=== PATIENT | female | born 1960 | race Caucasian/White ===

== ENCOUNTER 2018-12-05 17:41 | Emergency (ER) | payer OTHER ==
[~2018-12-05] VITALS: Ht 160 cm; Wt 50.4 kg
[~2018-12-05 17:41] MED LIST: FOLI1 PO; HYDCHL25 PO; HYDR1TAB94 PO; IBUP800 PO; LOSA25 PO; Percocet 5-3251 EACH PO; SERT50 PO; VITAMIN D; ZOLP10 PO
[2018-12-06] MEDS ORDERED: SERT50 PO ×2 (10:51)
[2018-12-06] MEDS ORDERED: ZOLP10 PO ×2 (10:52)
== END 2018-12-05 21:32 | disposition left against medical advice (07) ==
LOC: ER 17:41
DX: Z53.21 Procedure and treatment not carried out due to patient leaving prior to being seen by health care provider (principal)

== ENCOUNTER 2018-12-06 09:35 | Inpatient (IN) | payer OTHER ==
[~2018-12-06] VITALS: Ht 160 cm; Wt 50.4 kg
[2018-12-06 10:12] LABS: BASOPHILS ABSOLUTE AUTO 0.05 K/mm3 (0.00-0.23); BASOPHILS PERCENT AUTO 0 % (0-2); EOSINOPHILS ABSOLUTE AUTO 0.06 K/mm3 (0.00-0.68); EOSINOPHILS PERCENT AUTO 1 % (0-6); Hemoglobin 12.6 g/dL (11.5-16.0); IMMATURE GRAN ABSOLUTE AUTO 0.16 K/mm3 (0.00-0.10); IMMATURE GRAN PERCENT AUTO 1 % (0-1); LYMPHOCYTES ABSOLUTE AUTO 1.37 K/mm3 (0.84-5.20); LYMPHOCYTES PERCENT AUTO 11 % (21-46); MONOCYTES ABSOLUTE AUTO 0.93 K/mm3 (0.16-1.47); MONOCYTES PERCENT AUTO 7 % (4-13); Mean Corpuscular HGB 31.1 pg (26.0-34.0); Mean Corpuscular Volume 89 fL (80-100); Mean Platelet Volume 8.7 fL (9.1-12.4); NEUTROPHILS ABSOLUTE AUTO 10.28 K/mm3 (1.96-9.15); NEUTROPHILS PERCENT AUTO 80 % (41-73); Platelet Count 595 K/mm3 (150-400); RDW Coefficient Variation 11.4 % (11.7-14.2); RDW Standard Deviation 37.1 fL (35.1-46.3); Red Blood Cell Count 4.05 M/mm3 (3.80-5.20); White Blood Cell Count 12.85 K/mm3 (4.00-11.30)
[2018-12-06 10:48] LABS: Alanine Aminotransfer (ALT/SGP 66 U/L (12-78); Albumin/Globulin Ratio 0.6 (0.8-1.8); Alk Phos 94 U/L (50-136); Anion Gap 9 mmol/L (6-16); Aspartate Aminotrans (AST/SGOT 31 U/L (12-37); Bilirubin, Total 0.5 mg/dL (0.1-1.0); Blood Urea Nitrogen 13 mg/dL (8-24); CO2, Blood 28 mmol/L (21-32); Chloride, Blood 92 mmol/L (98-108); Creatinine, Blood 0.87 mg/dL (0.40-1.00); Globulin, Blood 5.3 g/dL (2.2-4.0); Glomerular Filtration Rate >60 (60-); Glucose, Blood 170 mg/dL (70-99); Sodium, Blood 129 mmol/L (136-145); Total Protein, Blood 8.3 g/dL (6.4-8.2)
[2018-12-06] MEDS ORDERED: SERT50 PO ×2 (10:51)
[2018-12-06] MEDS ORDERED: ZOLP10 PO ×2 (10:52)
[2018-12-06 11:13] LABS: Influenza A Negative (NEGATIVE); Influenza B Negative (NEGATIVE)
[2018-12-06 12:11] LABS: Source, Urine Clean Catch
[2018-12-06 12:22] LABS: Bilirubin, Urine Neg (Neg); Blood, Urine 2+ (Neg); Glucose Qualitative, Urine Neg (Neg); Ketones, Urine Neg (Neg); Leukocyte Esterase, Urine 2+ (Neg); Nitrite, Urine Pos (Neg); Protein, Urine 1+ (Neg); Urobilinogen, Urine NORM (Normal)
[2018-12-06 12:24] LABS: Specific Gravity, Urine 1.005 (1.003-1.022)
[2018-12-06 12:35] LABS: Appearance, Urine Clear (Clear); Color, Urine Yellow (P-Yellow)
[2018-12-06 12:42] LABS: Bacteria Many /hpf; Red Blood Cells, Urine 0-2 /hpf (0-2); Squamous Epithelial Cells Rare /hpf (Few)
--- NOTE | 2018-12-06 14:14 | NUR ---
PT UP TO RR. ADDITIONAL WARM BLANKETS PROVIDED.
--- NOTE | 2018-12-06 18:00 | NUR ---
SHIFT SUMMARY' NEW ER ADMIT THIS SHIFT WITH PYELONEPHRITIS. NO ACUTE CHANGES SINCE ARRIVAL. VSS. PT DENIES PAIN, NAUSEA. INDEP IN ROOM. TOMASA REG DIET. IVF INFUSING PER ORDERS. USES CALL LIGHT APPROPRIATELY.
--- NOTE | 2018-12-07 04:36 | NUR ---
SHIFT SUMMARY: NO ACUTE CHANGES THIS SHIFT. PT APPEARS TO BE RESTING COMFORTABLY. VOIDING WELL AND DRINKING ADEQUATE PO LIQ. SALINE LOCKED. DENIES N/V AND ANY PAIN. VS WNL. IND IN ROOM. NO CONCERNS AT THIS TIME.
[2018-12-07 05:08] LABS: BASOPHILS ABSOLUTE AUTO 0.05 K/mm3 (0.00-0.23); BASOPHILS PERCENT AUTO 0 % (0-2); EOSINOPHILS ABSOLUTE AUTO 0.11 K/mm3 (0.00-0.68); EOSINOPHILS PERCENT AUTO 1 % (0-6); Hematocrit 30.5 % (33.0-51.0); Hemoglobin 10.7 g/dL (11.5-16.0); IMMATURE GRAN ABSOLUTE AUTO 0.25 K/mm3 (0.00-0.10); IMMATURE GRAN PERCENT AUTO 2 % (0-1); LYMPHOCYTES ABSOLUTE AUTO 1.59 K/mm3 (0.84-5.20); LYMPHOCYTES PERCENT AUTO 13 % (21-46); MONOCYTES PERCENT AUTO 11 % (4-13); Mean Corpuscular HGB 31.3 pg (26.0-34.0); Mean Corpuscular HGB Conc 35.1 g/dL (31.5-36.5); Mean Corpuscular Volume 89 fL (80-100); Mean Platelet Volume 8.8 fL (9.1-12.4); NEUTROPHILS ABSOLUTE AUTO 8.63 K/mm3 (1.96-9.15); NEUTROPHILS PERCENT AUTO 72 % (41-73); Platelet Count 572 K/mm3 (150-400); RDW Coefficient Variation 11.5 % (11.7-14.2); RDW Standard Deviation 37.1 fL (35.1-46.3); Red Blood Cell Count 3.42 M/mm3 (3.80-5.20); White Blood Cell Count 11.93 K/mm3 (4.00-11.30)
[2018-12-07 05:40] LABS: Alanine Aminotransfer (ALT/SGP 45 U/L (12-78); Albumin, Blood 2.5 g/dL (3.4-5.0); Albumin/Globulin Ratio 0.6 (0.8-1.8); Alk Phos 76 U/L (50-136); Anion Gap 9 mmol/L (6-16); Aspartate Aminotrans (AST/SGOT 15 U/L (12-37); Bilirubin, Total 0.5 mg/dL (0.1-1.0); Blood Urea Nitrogen 8 mg/dL (8-24); Bun/Creatinine Ratio 12.9 (12.0-20.0); CO2, Blood 24 mmol/L (21-32); Calcium, Blood 8.2 mg/dL (8.5-10.1); Chloride, Blood 101 mmol/L (98-108); Creatinine, Blood 0.62 mg/dL (0.40-1.00); Globulin, Blood 4.4 g/dL (2.2-4.0); Glomerular Filtration Rate >60 (60-); Glucose, Blood 112 mg/dL (70-99); Sodium, Blood 134 mmol/L (136-145); Total Protein, Blood 6.9 g/dL (6.4-8.2)
--- NOTE | 2018-12-07 07:00 | NUR ---
ASSESSMENT: PT SLEEPING AT THIS TIME. NO S/S DISTRESS OR PAIN. RESP E/U. CALL LIGHT IN REACH. WILL ALLOW REST AND DO FULL ASSESSMENT WHEN PT IS AWAKE.
--- NOTE | 2018-12-07 18:27 | NUR ---
PT HAS BEEN STABLE THIS SHIFT. PT IS AFEBRILE. PT TOMASA DIET WELL AND DRINKING PLENTY OF FLUIDS. PT UP INDEP TO BATHROOM, VOIDING ADEQUATE AMT. PT DENIES URINARY SYMPTOMS. PT IS DAILY WT. CONT IV ABX. PT DENIES PAIN. USES CALL LIGHT APPROPRIATELY NEEDED.
--- NOTE | 2018-12-08 04:16 | NUR ---
SHIFT SUMMARY: NO ACUTE CHANGES THIS SHIFT. VS WNL. IND IN ROOM. DENIES N/V AND ANY PAIN. TOMASA DIET AND DRINKING ADEQAUTE PO FLUIDS. VOIDING WELL. CONTINUE ABX TX AND MONITOR FOR ANY CHANGES.
[2018-12-08 06:25] LABS: Anion Gap 6 mmol/L (6-16); Blood Urea Nitrogen 11 mg/dL (8-24); Bun/Creatinine Ratio 17.2 (12.0-20.0); CO2, Blood 25 mmol/L (21-32); Calcium, Blood 8.3 mg/dL (8.5-10.1); Chloride, Blood 102 mmol/L (98-108); Creatinine, Blood 0.64 mg/dL (0.40-1.00); Glomerular Filtration Rate >60 (60-); Glucose, Blood 96 mg/dL (70-99); Sodium, Blood 133 mmol/L (136-145)
[2018-12-08] MEDS ORDERED: CIPR500 PO ×2 (11:18)
--- NOTE | 2018-12-08 12:20 | NUR ---
DISCHARGE PT AMBULATES OUT WITH MOTHER. DENIES W/C ESCORT OUT. FEELS COMFORTABLE WITH DISCHARGE.
== END 2018-12-08 12:35 | disposition home or self-care (01) | DRG 872 ==
LOC: ER 09:35 → SURS 12:50
PROVIDERS: Emergency Medicine; ADMIT Hospitalist
DX: A41.9 Sepsis, unspecified organism (principal); N10 Acute pyelonephritis; E87.1 Hypo-osmolality and hyponatremia; R65.20 Severe sepsis without septic shock; I10 Essential (primary) hypertension; E87.6 Hypokalemia; C53.9 Malignant neoplasm of cervix uteri, unspecified; B19.20 Unspecified viral hepatitis C without hepatic coma; Z79.899 Other long term (current) drug therapy
CPT/HCPCS: 36415; 80048; 80053; 81001; 83605; 85025; 87040; 87086; 87804; 96361; 96365; 99285-25; J0696; J1650; J7030

== ENCOUNTER → 2019-02-14 | Outpatient (CLI) | payer OTHER ==
[~2019-02-14] MED LIST changes: +CIPR500 PO
[2019-02-15 14:21] LABS: Adenovirus F 40/41 Not Detected (NOT DETECT); Astrovirus Not Detected (NOT DETECT); Campylobacter Sp Not Detected (NOT DETECT); Cryptosporidium Not Detected (NOT DETECT); Cyclospora Cayetanensis Not Detected (NOT DETECT); E. Coli O157 Not Detected (NOT DETECT); Entamoeba Histolytica Not Detected (NOT DETECT); Enteroaggregative E. coli-EAEC Not Detected (NOT DETECT); Enteropathogenic E. coli-EPEC Not Detected (NOT DETECT); Enterotoxigenic E. coli-ETEC Not Detected (NOT DETECT); Giardia Lamblia Not Detected (NOT DETECT); Norovirus GI/GII Not Detected (NOT DETECT); Plesiomonas Shigelloides Not Detected (NOT DETECT); Rotavirus A Not Detected (NOT DETECT); Salmonella Sp Not Detected (NOT DETECT); Sapovirus Not Detected (NOT DETECT); Shiga Toxin-prod E. coli-STEC Not Detected (NOT DETECT); Shigella/Enteroin E. coli-EIEC Not Detected (NOT DETECT); Vibrio Cholerae Not Detected (NOT DETECT); Vibrio Sp Not Detected (NOT DETECT); Yersinia Enterocolitica Not Detected (NOT DETECT)
== END ==
LOC: LAB 11:24 → LAB SHORT 11:24
PROVIDERS: Radiology Radiation Oncology
DX: R19.7 Diarrhea, unspecified (principal)
CPT/HCPCS: 87507